=== PATIENT | male | born 1995 | race Caucasian/White ===

== ENCOUNTER 2020-10-01 21:15 | Emergency (ER) | payer OTHER ==
[~2020-10-01] VITALS: Ht 182.9 cm; Wt 78.0 kg
[2020-10-01] MEDS ORDERED: IBUPROFEN 600MG TABLET PO ONE (22:15)
[2020-10-01] MEDS ORDERED: TETANUS, DIPHTHERIA, PERTUSSIS VAC/PF 0.5ML (>7YR OLD) IM ONE (22:30)
[2020-10-01] MEDS ORDERED: LIDOCAINE HCL 1% 20ML VIAL (Pyxis) INJ INFIL ONE (23:00)
[2020-10-01] MEDS ORDERED: BACITRACIN 15GM TUBE TOP ONE (23:45)
[2020-10-02] MEDS ORDERED: T3 PO ×2 (00:29→00:35)
[2020-10-02] MEDS ORDERED: IBUP-2029 MT (00:35)
[2020-10-02 00:58] VITALS: BP 132/80
== END 2020-10-02 01:01 | disposition home or self-care (01) ==
LOC: ER 21:15
DX: S01.01XA Laceration without foreign body of scalp, initial encounter (principal); S42.462A Displaced fracture of medial condyle of left humerus, initial encounter for closed fracture; S60.222A Contusion of left hand, initial encounter; S09.8XXA Other specified injuries of head, initial encounter; M54.2 Cervicalgia; M79.602 Pain in left arm; M25.532 Pain in left wrist; Y08.89XA Assault by other specified means, initial encounter; Y93.89 Activity, other specified; Y92.488 Other paved roadways as the place of occurrence of the external cause
CPT/HCPCS: 12001; 73080; 73110; 73130; 90471; 90715; 99284; J3490